=== PATIENT | male | born 1955 | race Caucasian/White ===

== ENCOUNTER → 2017-05-24 | Outpatient (CLI) | payer MEDICAID ==
[2017-05-24 17:54] LABS: BASOPHILS % (AUTO) 0.7 %; EOSINOPHILS # (AUTO) 0.1 10^3/uL (0.0-0.7); EOSINOPHILS % (AUTO) 1.8 %; HGB - HEMOGLOBIN 14.1 g/dL (14.0-18.0); LYMPHOCYTES # (AUTO) 1.2 10^3/uL (1.5-3.5); LYMPHOCYTES % (AUTO) 28.3 %; MEAN CORPUSCULAR HEMOGLOBIN 31.1 pg (27.0-31.0); MEAN CORPUSCULAR VOLUME 91.4 fL (80.0-94.0); MEAN PLATELET VOLUME 7.8 fL (7.4-11.4); MONOCYTES # (AUTO) 0.4 10^3/uL (0.0-1.0); MONOCYTES % (AUTO) 8.3 %; NEUTROPHILS # (AUTO) 2.7 10^3/uL (1.5-6.6); NEUTROPHILS % (AUTO) 60.9 %; PLT - PLATELET COUNT 244 10^3/uL (130-450); RED BLOOD COUNT 4.55 10^6/uL (4.70-6.10); RED CELL DISTRIBUTION WIDTH 13.9 % (12.0-15.0); WHITE BLOOD COUNT 4.4 x10^3/uL (4.8-10.8)
[2017-05-24 18:05] LABS: ALBUMIN 4.4 g/dL (3.2-5.5); ALBUMIN/GLOBULIN RATIO 1.6 (1.0-2.2); ALKALINE PHOSPHATASE 51 IU/L (42-121); ALT ALANINE AMINOTRANSFERASE 23 IU/L (10-60); AST ASPARTATE AMINOTRANSFERASE 20 IU/L (10-42); BILIRUBIN,TOTAL 1.8 mg/dL (0.2-1.0); BUN - BLOOD UREA NITROGEN 14 mg/dL (6-20); CALCIUM 8.7 mg/dL (8.5-10.3); CARBON DIOXIDE - CO2 29 mmol/L (21-32); CHLORIDE 103 mmol/L (101-111); CHOL/HDL RATIO 4.7 (<5.0); CHOLESTEROL 201 mg/dL; CREATININE 0.7 mg/dL (0.6-1.2); GFR - MDRD 114 (>89); GLUCOSE 105 mg/dL (70-100); HDL CHOLESTEROL 43 mg/dL; LDL CHOLESTEROL,CALCULATED 116 mg/dL; LDL/HDL RATIO 2.7 (<3.6); SODIUM 138 mmol/L (135-145); TOTAL PROTEIN 7.2 g/dL (6.7-8.2); VLDL CHOLESTEROL 42 mg/dL
[2017-05-24 18:09] LABS: PSA SCREEN (Z12.5) 0.299 ng/mL (0.000-2.000)
== END ==
LOC: LAB.F 08:00
PROVIDERS: ATTEND Nurse Practitioner Family
DX: Z13.228 Encounter for screening for other metabolic disorders (principal); Z13.1 Encounter for screening for diabetes mellitus; Z12.5 Encounter for screening for malignant neoplasm of prostate; R68.82 Decreased libido; Z13.29 Encounter for screening for other suspected endocrine disorder; Z13.220 Encounter for screening for lipoid disorders; Z77.090 Contact with and (suspected) exposure to asbestos; Z13.0 Encounter for screening for diseases of the blood and blood-forming organs and certain disorders involving the immune mechanism
CPT/HCPCS: 36415; 80053; 80061; 83721; 84153; 84403; 84443; 85025

== ENCOUNTER 2018-01-26 12:45 | Day surgery (SDC) | payer MEDICAID ==
[2018-01-26] MEDS ORDERED: LACTATED RINGERS 1,000 ML IV ONE (13:24)
--- NOTE | 2018-01-26 14:15 | HISTORY & PHYSICAL EXAMINATION ---
HPI - History of Present Illness HPI Comment/Other: Mr. Villanueva Is here in consultation for screening colonoscopy. His last colonoscopy was performed in 2007 in [facility] and as per the patient was normal. I do not have these records available. He denies any concerns pertaining to his bowel habits. He denies constipation, diarrhea, changes in his bowel habits or blood in his stool. He denies any chronic abdominal pain. He denies any uexplained weight loss. He has no family history of colon cancer. Current Meds: None Past Medical History: Reviewed history from 05/23/2017 and no changes required: Work-related asbetos exposure. Past Surgical History: Reviewed history from 05/23/2017 and no changes required: Tonsillectomy Risk Factors: Smoked Tobacco Use: Former smoker Cigarettes: Yes Drug use: no Alcohol use: no Exercise: no Review of Systems General Denies weight loss. GI Denies abdominal pain. Resp Denies shortness of breath. Psych Denies anxiety. Heme Denies bleeding. Problems were reviewed with the patient during this visit. Medications were reviewed with the patient during this visit. Allergies were reviewed with the patient during this visit. No known allergies. Physical Exam General: well developed, well nourished, in no acute distress Lungs: clear bilaterally to A & P Heart: regular rate and rhythm, S1, S2 without murmurs, rubs, gallops, or clicks Abdomen: bowel sounds positive; abdomen soft and non-tender without masses, organomegaly, or hernias noted Pulses: pulses normal in all 4 extremities Neurologic: no focal deficits, CN II-XII grossly intact with normal reflexes, coordination, muscle strength and tone Cervical Nodes: no significant adenopathy Psych: alert and cooperative; normal mood and affect; normal attention span and concentration Impression & Recommendations: Problem # 1: screening for colon cancer I have explained the colonoscopy procedure to the patient in detail and the risks involved, including but not limited to bleeding, perforated viscus and missing lesions. The patient understands the above and has agreed to proceed with the procedure. Colon prep instructions and prescription provided. Approximately 20 minutes spent in preparing the patient; all Questions and concerns were addressed. PMH/PSH - Past Medical History Cardiovascular: positive: None Respiratory: positive: None Endocrine/Autoimmune: positive: None GI: positive: None : positive: None HEENT: positive: None Psych: positive: None Musculoskeletal: positive: None Derm: positive: None MRSA Hx?: No - Past Surgical History General: positive: Colonoscopy HEENT: positive: Tonsil/Adenoidectomy Meds/Allgy - Home Medications Home Medications: Ambulatory Orders Medication Instructions Recorded Confirmed No Known Home Medications 01/25/18 01/25/18 - Allergies Allergies/Adverse Reactions: Allergies Allergy/AdvReac Type Severity Reaction Status Date / Time No Known Drug Allergies Allergy Verified 01/25/18 13:15 Exam - Vital Signs Vital Signs: Vital Signs x48h Temp Pulse Resp BP Pulse Ox 01/26/18 13:01 36.2 C L 72 16 121/71 97
[2018-01-26] MEDS ORDERED: fentaNYL 250 MCG/5 ML VIAL IVP ONE (15:03)
[2018-01-26] MEDS ORDERED: MIDAZOLAM 2 MG/2 ML VIAL IVP ONE (15:03)
[2018-01-26 15:33] VITALS: BP 100/67
== END 2018-01-26 12:46 | disposition home or self-care (01) ==
LOC: SDS 12:45
PROVIDERS: ATTEND Surgery
PROC: 0DBL8ZZ Excision of Transverse Colon, Via Natural or Artificial Opening Endoscopic (ICD-10-PCS; principal; 2018-01-26 13:45)
DX: Z12.11 Encounter for screening for malignant neoplasm of colon (principal); Z87.891 Personal history of nicotine dependence; D12.3 Benign neoplasm of transverse colon; K64.8 Other hemorrhoids
CPT/HCPCS: 45380; J3010; J7120

== ENCOUNTER 2018-03-06 13:00 | Outpatient (CLI) | payer MEDICAID ==
[2018-03-06 19:28] LABS: BILIRUBIN,URINE NEGATIVE (NEGATIVE); GLUCOSE, URINE (UA) NEGATIVE (NEGATIVE); KETONES,URINE (UA) NEGATIVE (NEGATIVE); LEUKOCYTE ESTERASE, URINE SMALL (NEGATIVE); NITRITE,URINE NEGATIVE (NEGATIVE); OCCULT BLOOD,URINE SMALL (NEGATIVE); PROTEIN,URINE 30 mg/dL (NEGATIVE); UROBILINOGEN,URINE 0.2 (NORMAL) E.U./dL (NORMAL)
[2018-03-06 19:42] LABS: CLARITY,URINE CLOUDY (CLEAR); WBC CLUMPS,URINE PRESENT
[2018-03-06 19:43] LABS: BACTERIA,URINE Many /HPF (None Seen); SQUAMOUS EPITHELIAL CELL,UR RARE Squamous (<= Few)
== END 2018-03-06 13:01 | disposition home or self-care (01) ==
LOC: LAB.R 13:00
PROVIDERS: ATTEND Nurse Practitioner Family
DX: R30.0 Dysuria (principal)
CPT/HCPCS: 81001; 87077; 87086; 87181; 87491; 87591

== ENCOUNTER 2019-03-28 09:27 | Outpatient (CLI) | payer MEDICAID ==
[2019-03-28 17:27] LABS: BILIRUBIN,URINE NEGATIVE (NEGATIVE); GLUCOSE, URINE (UA) NEGATIVE (NEGATIVE); KETONES,URINE (UA) NEGATIVE (NEGATIVE); LEUKOCYTE ESTERASE, URINE NEGATIVE (NEGATIVE); NITRITE,URINE NEGATIVE (NEGATIVE); OCCULT BLOOD,URINE NEGATIVE (NEGATIVE); PROTEIN,URINE NEGATIVE (NEGATIVE); UROBILINOGEN,URINE 0.2 (NORMAL) E.U./dL (NORMAL)
[2019-03-28 17:28] LABS: CLARITY,URINE CLEAR (CLEAR)
[2019-03-28 18:18] LABS: ALBUMIN 4.2 g/dL (3.2-5.5); ALBUMIN/GLOBULIN RATIO 1.5 (1.0-2.2); ALKALINE PHOSPHATASE 50 IU/L (42-121); ALT ALANINE AMINOTRANSFERASE 35 IU/L (10-60); AST ASPARTATE AMINOTRANSFERASE 22 IU/L (10-42); BILIRUBIN,TOTAL 1.5 mg/dL (0.2-1.0); BUN - BLOOD UREA NITROGEN 13 mg/dL (6-20); CALCIUM 8.5 mg/dL (8.5-10.3); CARBON DIOXIDE - CO2 28 mmol/L (21-32); CHLORIDE 103 mmol/L (101-111); CHOL/HDL RATIO 4.9 (<5.0); CHOLESTEROL 194 mg/dL; CREATININE 0.8 mg/dL (0.6-1.2); GFR - MDRD 97 (>89); GLUCOSE 117 mg/dL (70-100); HDL CHOLESTEROL 40 mg/dL; LDL CHOLESTEROL,CALCULATED 118 mg/dL; SODIUM 138 mmol/L (135-145); VLDL CHOLESTEROL 36 mg/dL
== END 2019-03-28 09:28 | disposition home or self-care (01) ==
LOC: LAB.S 09:27
PROVIDERS: ATTEND Internal Medicine
DX: Z00.00 Encounter for general adult medical examination without abnormal findings (principal); R39.11 Hesitancy of micturition
CPT/HCPCS: 36415; 80053; 80061; 81001; 81003; 83721; 87086